=== PATIENT | male | born 1945 | race Caucasian/White ===

== ENCOUNTER 2017-04-10 21:04 | Emergency (ER) | payer SELFPAY ==
--- NOTE | ~2017-04-10 | CR127 ---
[facility] A Service of [facility] & [facility] / [facility] RADIOLOGY TEXT RESULTS PATIENT: CHIDI RIZO LOCATION: [facility] : 45 UNIT #: [id number] AGE: [address]: Eboni Browne MD SEX: M ORDER DR: [id number] [facility] [address] [place], [place] [address] [id number] E MR#: [id number] Acc #: [id number] NAME: CHIDI RIZO : 1945 SEX: M STUDY DATE/TIME: 04/10/2017 22:50 UNIT: [facility] ROOM: STUDY DESCRIPTION: CR Foot Complete Min 3 View Rt Attending Physician: Eboni Browne M.D. Ordering Physician: Marco Correa M.D. Primary Care Physician: Primary Care Physician No MEDICAL IMAGING REPORT This report is preliminary unless electronic signature is present EXAM Right foot INDICATION Right foot pain. FINDINGS 3 views of the right foot without comparison. There is no acute fracture or dislocation. Patient has a moderate hallux valgus deformity at the first metatarsophalangeal joint. 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 IMPRESSION No acute findings. Dictated by... Jeff Martines M.D. THIS IS AN ELECTRONICALLY VERIFIED REPORT Jeff Martines M.D. at 04/11/2017 3:24 AM TAMMI/tiff TD: 04/11/2017 02:44 JOB #: [id number] MEDICAL IMAGING REPORT Page 1 of 1 COPY
[2017-04-10 23:56] LABS: BASOPHIL# 0.1 X10e3 (0-0.3); EOSINOPHIL# 0.1 X10e3 (0-0.7); EOSINOPHIL% 1.5 % (0.0-7.0); HEMOGLOBIN 12.5 gm/dL (13.0-16.0); LYMPHOCYTE# 2.2 X10e3 (1.0-3.5); LYMPHOCYTE% 31.3 % (17.0-45.0); MEAN CELL VOLUME 92.2 FL (83-96); MEAN CORPUSCULAR HEMOGLOBIN 30.4 PG (28-34); MEAN CORPUSCULAR HGB CONC 32.9 g/dL (30-36); MEAN PLATELET VOLUME 7.2 FL (6.5-11.5); MONOCYTE# 0.5 X10e3 (0-1.0); MONOCYTE% 6.9 % (3.0-12.0); NEUTROPHIL# 4.2 X10e3 (1.5-7.1); NEUTROPHIL% 59.3 % (40-75); PLATELET COUNT 193 X10e3 (140-420); RED BLOOD COUNT 4.12 X10e (3.90-5.60); RED CELL DISTRIBUTION WIDTH 15.1 % (11.0-15.5); WHITE BLOOD COUNT 7.1 X10e3 (4.0-10.5)
[2017-04-11 00:07] LABS: DIFF IND NO
[2017-04-11 00:27] LABS: ALBUMIN SERUM 3.9 g/dL (3.5-5.0); BILIRUBIN, DIRECT 0.1 mg/dL (0.0-0.2); BILIRUBIN,INDIRECT 0.6 mg/dL (0.0-0.9); BILIRUBIN,TOTAL 0.7 mg/dL (0.2-2.0); BUN/CREATININE RATIO 11.42; CALCIUM SERUM 8.6 mg/dL (8.4-10.2); CREATININE SERUM 0.7 mg/dL (0.6-1.4); GLOM FILT RATE Estimated 94.3 mL/min (>60); POTASSIUM 3.4 mmol/L (3.5-5.1); PROTEIN TOTAL SERUM 7.8 g/dL (6.0-8.3)
== END 2017-04-11 05:40 | disposition home or self-care (01) ==
LOC: CED 21:04
PROVIDERS: Emergency Medicine
DX: F19.129 Other psychoactive substance abuse with intoxication, unspecified (principal); F10.10 Alcohol abuse, uncomplicated; Y90.9 Presence of alcohol in blood, level not specified; M79.673 Pain in unspecified foot; G89.29 Other chronic pain
CPT/HCPCS: 73630; 80048; 80076; 85025; 96372; 99283; G0480; J3486